=== PATIENT | female | born 2000 | race Caucasian/White ===

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

== ENCOUNTER 2023-07-13 14:31 | Outpatient (CLI) | payer SELFPAY ==
--- NOTE | 2023-07-13 14:38 | US_ITS ---
WS: [id number] ULTRASOUND LEFT BREAST HISTORY: 6 O CLOCK 1CM NODULE, 22-year-old COMPARISON: None available. TECHNIQUE: 2-D and Doppler. Mildly hypoechoic area in the left breast at 6:00, 1 cm from the nipple. Hypoechoic mass measures 10 x 8 x 7 mm. This corresponds to the palpable abnormality. There is no increased vascularity. Could re present a fibroadenoma. No similar findings noted within the right breast at the same location. IMPRESSION: US/US breast LT limited* [id number] BI-RADS: 3-Probably Benign FOLLOW-UP: 6 Month Follow-up Hypoechoic mass in the left breast is most likely benign and probably a fibroad enoma. Consider 6-month follow-up by ultrasound. Ultrasound-guided biopsy can b e performed at this time if the patient wishes. If mass changes in size prior t o 6-month follow-up ultrasound can be performed earlier.
== END 2023-07-13 14:32 | disposition home or self-care (01) ==
PROVIDERS: PCP Nurse Practitioner Family; Visit Provider Advanced Practice Midwife
DX: N63.25 Unspecified lump in the left breast, overlapping quadrants (principal)
CPT/HCPCS: 76642

== ENCOUNTER 2025-08-08 19:48 | Emergency (ER) | payer SELFPAY ==
--- OUTSIDE RECORDS SUMMARY | 2025-08-08 19:56 | XMS_ITS | Clinical Summary ---
Author Organization [facility] Address [address] [place] [id number] Phone Care Team Providers Care Dial Screw Assembler Name Role Phone Unavailable Primary Care Provider Unavailabl e Allergies Active Allergy Reactions Criticality Noted Date Comments Amoxicillin Rash Low 01/09/2022 Latex Hives High 01/09/2022 Penicillins Rash Low 01/09/2022 Medications No known medications Active Problems Problem Noted Date Diagnosed Date Elevated prolactin level 01/21/2022 Family history of diabetes m les in first degree relative 01/09/2022 Overview (01/09/2022): Mother and Father Family history of thyroid disease 01/09/2022 Oligomenorrhea 01/09/2022 Family History Medical History Relation Name Comments Diabetes Father Thyroid Disease Father Breast Cancer Mother Diabetes Mother Thyroid Disease Mother Breast Cancer Paternal Grandmother Relation Name Status Comments Father Alive Mother Alive Paternal Grandmother Social History Tobacco Use Types Packs/Day Years Used Date Smoking Tobacco: Never Smokeless Tobacco: Never Alcohol Use Standard Drinks/Week Comments Never 0 (1 standard drink = 0.6 oz pur e alcohol) Comments No Sex and Gender Information Value Date Recorded Sex Assigned at Not on file Legal Sex Female 7:40 AM REGISTERED NURSE SURGICAL SERVICES Gender Identity Not on file Sexual Orientation Not on file Last Filed Vital Signs Vital Sign Reading Time Taken Comments Blood Pressure 124/70 01/09/2022 12:55 PM EST Pulse 95 01/09/2022 12:55 PM EST Temperature - - Respiratory Rate - - Oxygen Saturation 98% 01/09/2022 12:55 PM EST Inhaled Oxygen Concentration - - Weight 78.9 kg (174 lb) 01/09/2022 12:55 PM EST Height 162.6 cm (5' 4 ) 01/09/2022 12:55 PM EST Body Mass Index 29.87 01/09/2022 12:55 PM EST Plan of Treatment Health Maintenance Due Date Last Done Comments HPV VACCINES (1 - 3-dose series) 2017 DTAP/TDAP/TD VACCINES (1 - Tdap) 2021 HEPATITIS B VACCINES (1 of 3 - 19+ 3-dose series) 09/30 CHLAMYDIA SCREENING (ANNUAL) 11-24 YEARS 01/09/2023 01/09/2022 CERVICAL CANCER SCREENING 2023 HPV/Cotest (21-29) 2023 PAP SMEAR 2023 INFLUENZA VACCINE (#1) 2025 Procedures Procedure Name Priority Date/Time Associated Diagnosis Comments GC/CHLAMYDIA, GENITAL Routine 01/09/2022 2:34 PM EST Screen for STD (sexually transmitted disease) from Last 3 Months or Most Recently Relevant to Health Maintenance Results * GC/CHLAMYDIA, GENITAL (01/09/2022 2:34 PM EST) CHLAMYDIA DNA AMPLIFICATION NOT DETECTED Not Detected 01/12/2022 11:04 AM EST [facility] GC DNA AMPLIFICATION NOT DETECTED Not Detected 01/12/2022 11:04 AM EST [facility] Genital SWAB OF ENDOCERVIX / Unknown Collection / Unknown 01/09/2022 2:34 PM EST 01/09/2022 5:[address] [facility] - 01/12/2022 11:04 AM EST The method for these assays is Nucleic Acid Amplification (NAAT). Culture is recommended in cases of suspected medico-legal applications or suspected failure of therapy. The performance of specimens other than urine, endocervical swabs, male urethral swabs, and PreservCyt Solution liquid Pap specimens has not been validated. The performance of endocervical swabs and PreservCyt Solution liquid Pap has not been validated for females under 14 years of age. us Li Andres (Cigar Head Stringer) Ericka HOLMAN MICRO - GEN ORDERABLES CO M Final Result [facility] CLIA# [id number] [address] [place] [id number] from Last 3 Months or Most Recently Relevant to Health Maintenance Insurance [employer] [facility]
[2025-08-08 20:00] VITALS: BP 150/86; PULSE 83; RESP 14; TEMP 36.8; O2SAT 97
--- NOTE | 2025-08-08 20:24 | XRR_ITS ---
PROCEDURE INFORMATION: Exam: XR Left Wrist Exam date and time: 08/08/2025 8:42 PM Age: 24 years old Clinical indication: Injury or trauma; Fall; Blunt trauma (contusions or hematomas); Wrist; Left TECHNIQUE: Imaging protocol: Radiologic exam of the left wrist. Views: 3 or more views. COMPARISON: No relevant prior studies available. FINDINGS: Bones/joints: Normal. Soft tissues: Normal. XR/XR wrist LT min 3V* [id number] IMPRESSION: No acute fracture or dislocation.
--- NOTE | 2025-08-08 20:52 | XRR_ITS ---
PROCEDURE INFORMATION: Exam: XR Left Forearm Exam date and time: 08/08/2025 9:06 PM Age: 24 years old Clinical indication: Injury or trauma; Fall; Blunt trauma (contusions or hematomas); Arm, lower; Left TECHNIQUE: Imaging protocol: Radiologic exam of the left forearm. Views: 2 views. COMPARISON: CR (UP EX, ) 08/08/2025 8:42 PM FINDINGS: Bones/joints: Lucent line in the base of the distal phalanx of the thumb to be correlated with point tenderness to rule out nondisplaced fracture. No elbow joint effusion. Soft tissues: Normal. XR/XR forearm LT 2V [id number] IMPRESSION: Lucent line in the base of the distal phalanx of the thumb to be correlated with point tenderness to rule out nondisplaced fracture.
--- NOTE | 2025-08-08 20:52 | W.ED.EXTPRO ---
HPI - Extremity Problem General: Chief complaint: Extremity Injury, Upper Stated complaint: left arm injury skating Time Seen by Provider: 08/08/25 19:49 Source: patient Mode of arrival: ambulatory Limitations: no limitations History of Present Illness: 24-year-old female states she [place] [employer] and fell while skating roughly 1 hour ago. States she landed on her left wrist has left wrist and forearm pain she rates the pain 8 out of 10 she denies any other injuries denies hitting her head denies any loss conscious. Associated symptoms: Deny chest pain, fever(s) or rash Related Data Previous Rx's ?Medication ?Instructions ?Recorded ofloxacin 0.3 % eye drops 2 drp ophthalmic (eye) QID 7 days 08/15/23 #5 mL sulfamethoxazole 800 1 tab PO BID 7 days #14 tabs 08/15/23 mg-trimethoprim 160 mg tablet (Bactrim DS) desogestrel 0.15 mg-ethinyl 1 tab PO DAILY #84 tabs 05/18/24 estradiol 0.03 mg tablet (Cyred) Allergies Allergy/AdvReac Type Severity Reaction Status Date / Time latex Allergy Unknown ALGY-Redness Verified 08/08/25 20:04 of Skin amoxicillin Allergy ALGY-Hives Verified 08/08/25 20:04 Penicillins Allergy ALGY-Hives Verified 08/08/25 20:04 Review of Systems Const: Denies: fever(s), chills, body aches or change in appetite ENMT: Denies: throat pain or dental pain Card: Denies: chest pain Resp: Denies: dyspnea GI: Denies: abdominal pain, nausea, vomiting or diarrhea Musc: Reports: extremity pain; Denies: neck pain or back pain Skin/Breast: Denies: rash Neuro: Denies: headache(s) PFSH ED PFSH: Social History Smoking and tobacco/nicotine status: never used tobacco/nicotine Alcohol intake: never Substance/Drug Use: never Adopted: No Caregiver/support person: No Lives independently: Yes Household members: family Housing: House Marital status: Legally Number of children: 0 Highest education level completed: High School Graduate service: No Current occupational status: employed Physical Exam Const: COMMON NORMALS: no acute distress, patient oriented x3 and healthy appearing HENMT: COMMON NORMALS: normocephalic and atraumatic HEAD & SCALP: normocephalic and atraumatic Eye: COMMON NORMALS: Equal, round and reactive pupils present and EOMs intact bilaterally PUPIL: Yes Equal, round and reactive pupils present Neck/C-Spine: COMMON NORMALS: full ROM and supple Chest: COMMONS NORMALS: normal inspection of the chest Resp: COMMON NORMALS: normal respiratory effort Cardio: COMMON NORMALS: regular rate RATE: regular rate Extremity: NARRATIVE EXTREMITY EXAM: Tenderness noted to the left wrist and forearm no obvious deformities distal pulse sensation intact Neuro: COMMON NORMALS: patient oriented x3, moves all extremities and no focal motor deficits Psych: COMMON NORMALS: mental status grossly normal, Normal thought process present and cooperative THOUGHT PROCESS: Normal thought process present Skin: COMMON NORMALS: no rashes or lesions noted and no wounds GENERAL SKIN EXAM: no rashes or lesions noted Course Vital Signs: Vital signs: Vital Signs Temperature 98.2 F 08/08/25 20:00 Pulse Rate 80 08/08/25 20:59 Respiratory Rate 14 08/08/25 20:00 Blood Pressure 130/90 08/08/25 20:59 Pulse Oximetry 97 08/08/25 20:59 Oxygen Delivery Me thod Room Air 08/08/25 20:59 MDM - Extremity (Nontraumatic) Medical Decision Making Patient presents for wrist sprain from a fall imaging here shows no fractures patient stable for discharge she is to follow-up with PCP return if worsening she understands agrees to plan. Medical Records I reviewed the patient's medical records. XR interpretation done by ED provider, pending radiology final review ED provider radiology interpretation(s): xr wrist: no acute fx xr forearm: no acute fx Discharge Plan Discharge Patient Disposition: Home Clinical Impression: Left wrist sprain Condition: Stable Prescriptions: No Action sulfamethoxazole-trimethoprim [Bactrim DS] 800-160 mg tablet 1 tab PO BID 7 Days Qty: 14 0RF ofloxacin 0.3 % drops 2 drp ophthalmic (eye) QID 7 Days Qty: 5 0RF desogestrel-ethinyl estradiol [Cyred] 0.15-0.03 mg tablet 1 tab PO DAILY Qty: 84 3RF Discharge Orders: Discharge ED (Routine); Ordered 08/08/25 Ordered By: Ronny Bell Referrals: Chloé Nolen FNP-C [Primary Care Provider, Family Practice] - 4-7 days Discharge Diet: Advance as tolerated Discharge Activity: Resume usual activity Patient Instructions: Wrist Sprain (ED) Stand Alone Forms: Work/School Release Print Language: Maldivian Coding Level of Care Code ED Church History Professor for Linda Lazo
[2025-08-08] MEDS: HYDROcodone-acetaminophen 5-325 mg Tablet 1 TAB PO (20:57)
[2025-08-08 20:59] VITALS: BP 130/90; PULSE 80; O2SAT 97
[2025-08-08 21:44] VITALS: BP 121/81; PULSE 83; O2SAT 97
== END 2025-08-08 21:46 | disposition home or self-care (01) ==
PROVIDERS: Emergency Provider Emergency Medicine; PCP Nurse Practitioner Family
DX: S63.502A Unspecified sprain of left wrist, initial encounter (principal); V00.131A Fall from skateboard, initial encounter
CPT/HCPCS: 73090; 73110; 99283; J9999